=== PATIENT | female | born 1995 | race Native Hawaiian/Other Pacific Islander ===

== ENCOUNTER 2021-04-21 16:28 | Emergency (ER) | payer OTHER ==
[~2021-04-21] VITALS: Ht 160 cm; Wt 81.6 kg
[2021-04-21 17:06] LABS: PLATELET COUNT 518 K/uL (152-353)
[2021-04-21 17:14] LABS: POTASSIUM 3.8 mmol/L (3.6-5.2); SODIUM 138 mmol/L (136-145)
[2021-04-21 20:21] VITALS: BP 123/76; TEMP 98
== END 2021-04-21 20:21 | disposition home or self-care (01) ==
LOC: ED 16:28 → EDSTATUS 16:28 → ED 20:21
PROVIDERS: Emergency Medicine Emergency Medical Services
DX: K29.00 Acute gastritis without bleeding (principal)
CPT/HCPCS: 36415; 80048; 81000; 81025; 82150; 83690; 84484; 85027; 85379; 85610; 93005; 96360; 96375; 99284; J2270; J2405; J3490; Q9963